=== PATIENT | female | born 1985 | race Caucasian/White ===

== ENCOUNTER 2018-07-29 12:35 | Outpatient (REF) | payer MEDICAID, SELFPAY | END 2018-07-29 12:55 | LOC: NCHCN 12:35 | PROVIDERS: PCP Nurse Practitioner Family; Visit Provider Nurse Practitioner Family | DX: N12 Tubulo-interstitial nephritis, not specified as acute or chronic (principal) | CPT/HCPCS: 87086 ==

== ENCOUNTER 2019-05-02 22:46 | Outpatient (REF) | payer MEDICAID, SELFPAY ==
[2019-05-02 22:06] LABS: Bilirubin Negative (Negative); Blood Negative (Negative); Clarity Turbid (Clear); Glucose Negative (Negative); Ketones Trace mg/dL (Negative); Leukocyte Esterase Negative (Negative); Nitrite Negative (Negative); Specific Gravity 1.025 (1.005-1.025); Urobilinogen 0.2 EU/dL (Up TO 0.2)
== END 2019-05-02 23:06 ==
LOC: NCHCN 22:46
PROVIDERS: PCP Nurse Practitioner Family; Visit Provider Family Medicine
DX: N12 Tubulo-interstitial nephritis, not specified as acute or chronic (principal)
CPT/HCPCS: 81003

== ENCOUNTER 2019-06-13 10:45 | Outpatient (REF) | payer MEDICAID, SELFPAY ==
[2019-06-13 22:31] LABS: Abs Immature Grans 0.02 k/cumm (0.0-0.09); Absolute Basophil Count 0.05 k/cumm (0.0-0.2); Absolute Eosinophil Count 0.08 k/cumm (0.0-0.7); Absolute Monocyte Count 0.57 k/cumm (0.11-0.7); Absolute Neutrophil Count 7.73 k/cumm (1.2-6.7); Basophils % 0.5; Eosinophils % 0.8; HCT 44.5 % (36.0-46.0); HGB 14.7 g/dL (12.0-15.5); Immature Grans % 0.2 %; Lymphocytes % 19.1; Mean Corpuscular Hemoglobin 32.6 pg (27.0-33.0); Mean Corpuscular Volume 98.7 fL (80-95); Mean Platelet Volume 11.6 fL (8.0-11.0); Monocytes % 5.5; Neutrophils % 73.9; Platelet Count 253 x1000/uL (130-400); RBC 4.51 m/cumm (4.00-5.20); RBC Distribution Width 13.5 % (11.7-14.6); White Blood Cell Count 10.45 k/cumm (4.4-10.8)
[2019-06-13 23:02] LABS: TSH 2.58 uIU/mL (0.36-3.74); Vitamin B12 285 pg/mL (193-986)
[2019-06-15 10:34] LABS: Syphilis Serology (RPR) Negative (Negative)
[2019-06-15 11:00] LABS: HIV-1/2 Ag & Ab Screen Negative (Negative)
[2019-06-15 11:51] LABS: Hep B Core Antibody Negative (Negative)
[2019-06-15 14:14] LABS: HCV RNA Detection Quantitative 0 IU/mL (Undetected)
== END 2019-06-13 11:05 ==
LOC: NCHCN 10:45
PROVIDERS: PCP Nurse Practitioner Family; Visit Provider Nurse Practitioner Family
DX: R63.4 Abnormal weight loss (principal); R61 Generalized hyperhidrosis; Z11.4 Encounter for screening for human immunodeficiency virus [HIV]; Z11.59 Encounter for screening for other viral diseases; N32.89 Other specified disorders of bladder; R30.0 Dysuria; N39.46 Mixed incontinence; M54.81 Occipital neuralgia
CPT/HCPCS: 86704; 87389; 82607; 84443; 85025; 86592; 87522

== ENCOUNTER 2019-11-01 15:30 | Outpatient (REF) | payer MEDICAID, SELFPAY ==
[2019-11-05 16:54] LABS: SARS-CoV-2 RNA Undetected (Undetected); SARS-CoV-2 Specimen Source Nasopharynx
== END 2019-11-01 15:50 ==
LOC: NCHCN 15:30
PROVIDERS: PCP Nurse Practitioner Family; Visit Provider Nurse Practitioner Family
DX: Z20.828 Contact with and (suspected) exposure to other viral communicable diseases (principal)
CPT/HCPCS: U0003

== ENCOUNTER 2020-10-24 18:24 | Outpatient (REF) | payer MEDICAID, SELFPAY ==
[2020-10-24 22:08] LABS: HCT 35.8 % (36.0-46.0); HGB 11.9 g/dL (11.2-15.7); MCH 33.8 pg (27.0-33.0); MCHC 33.2 % (32.0-36.0); MCV 101.7 fL (80-95); MPV 12.1 fL (8.0-11.0); Platelet Count 178 10^3/uL (130-400); RBC 3.52 10^6/uL (3.93-5.22); RDW 11.2 % (11.7-14.6); WBC 9.11 10^3/uL (4.4-10.8)
[2020-10-24 22:31] LABS: Ferritin 37 ng/mL (8-252); TSH (W/Ref FT4) 2.71 uIU/mL (0.36-3.74)
[2020-10-24 22:40] LABS: Hemoglobin A1C 5.1 % (<5.7)
== END 2020-10-24 18:25 | disposition home or self-care (01) ==
LOC: NCHCN 18:24
PROVIDERS: PCP Nurse Practitioner Family; Visit Provider Nurse Practitioner Community Health
DX: G62.9 Polyneuropathy, unspecified (principal); L65.9 Nonscarring hair loss, unspecified; E55.9 Vitamin D deficiency, unspecified; Z13.1 Encounter for screening for diabetes mellitus
CPT/HCPCS: 82306; 85027; 82728; 83036; 84443

== ENCOUNTER 2022-06-03 15:41 | Outpatient (REF) | payer MEDICAID, SELFPAY ==
--- NOTE | 2022-06-03 10:30 | PAPFT_PTH ---
PATIENT: Makayla Mccloud LOC: [facility] U#:[id number] AGE/SX: 36/F ROOM: RE06/03/[address]: Mouna Soto : 1985 BED: DIS: 06/03/2022 SPEC #: [id number] RECD: 06/03/22 18:11 STATUS: ARNAUD REWarren #: [id number] LEANNA: 06/03/22 10:[address]: Mouna Drake DEPT: [facility] Cytology RECD BY: Divya Pereira Tissues: 1 - CX/ENDOCX FOR PAP SMEARS Procedures: PAP THIN PREP/UVM Screening HPV DNA PROBE Comments: [id number]
--- OUTSIDE RECORDS SUMMARY | 2022-06-03 15:43 | XMS_ITS | CCD ---
:1985 Author Care Team Providers Name Role Phone PAM QUINTANILLA Attending Physician Unavailable Vital Signs Unknown or Not Available. Allergies Allergy Code Allergy Type Reaction Status PCN (penicillin) 0 Drug allergy Anaphylaxis Active Procedures Unknown or Not Available. History of Immunizations Immunization Code Date Influenza, seasonal, injectable, preservative free 140 03/18/2014 Problems Unknown or Not Available. Results [facility] - Collect Date/Danielle e: 09/28/2021 10:34 Test Name Code Test Result Test Units Test Ref Range Tier- 74090-8 PRE-OP N/A SARS COV2 RNA: 30978-9 NEGATIVE N/A REFERENCE RAN GE: NEGAT Active Medications Medication Code Dose Units Frequency Route Modification Start Date/Time Phenazopyridine 0301313 1 TABLET THREE TIMES ORAL 08/2021 200MG Oral Tablet A DAY 16:29 Prescription Detail TAKE 1 TABLET ORAL THREE DANIELLE ES A DAY Ondansetron 4MG Oral 228756 1 TABLET NEEDED EVERY ORAL 12/12/2021 16:28 Tablet, Disintegrating 6 HOURS Prescription Detail TAKE 1 TABLET ORAL NEEDED EVERY 6 HOURS FOR Nausea/Vomiting Cipro 500MG Oral Tablet 096822 1 TABLET TWICE A DAY ORAL 12/12/2021 16:27 Prescription Detail TAKE 1 TABLET ORAL TWICE A D AY Metoclopramide 5MG Oral 331774 1 TABLET NEEDED EVERY ORAL 06/26/2021 13:12 Tablet 8 HOURS Prescription Detail TAKE 1 TABLET ORAL NEEDED EVERY 8 HOURS FOR Nausea/Vomiting SUBOXONE 8MG-2MG SUBLINGUAL FILM 0 8 MILLIGRAMS DAILY ORAL 07/22/2018 10:47 Prescription Detail TAKE 8 MILLIGRAMS ORAL DAILY Medications Administered During Visit Unknown or Not Available. Encounters Encounter Diagnosis Diagnosis Code Start Date Pre-surgery testing [id number] 09/28/2021 Social History Smoking Status Code Start Date End Date Former smoker [id number] Patient Decision Aids Unknown or Not Available. Discharge Instructions You were admitted to [facility] on 09/28/2021 22:16 with a principal diagnosis of Encounter for preprocedural laborator y examination You had the following tests done: COPLE Y COVID RHEONIX* You were discharged from [facility] on 09/28/2021 22:16 Should you have any questions prior to d ischarge, please contact a member of your healthcare team. If you have left the ho spital and have any questions, please contact your primary care physician. Chief Complaint and Reason For Visit Unknown or Not Available. Function Status Unknown or Not Available. Plan of Care Unknown or Not Available. Referral/Transition of Care Unknown or Not Available.
--- OUTSIDE RECORDS SUMMARY | 2022-06-03 15:43 | XMS_ITS | CCD ---
:1985 Author Care Team Providers Name Role Phone SILAS NUNO Attending Physician Unavailable RACHEL PAINTER Er Physician 1 Unavailable JACQUELIN Rodriguez Registered Nurse Unavailable MAHAD Dee Registered Nurse Unavailable Vital Signs Vital Sign Value Unit Date/Time Recent/Initial? BMI (Body Mass Index) 18.32 kg/m^2 09/07/2021 19:55 In itial VS Weight Measured 117 lbs 09/07/2021 19:55 Initial VS Height 67 in 09/07/2021 19:55 Initial VS BSA (Body Surface Area) 1.58 m^2 09/07/2021 19:55 Initial VS BP Systolic 147 mmHg 09/07/2021 19:55 Initial VS BP Diastolic 110 mmHg 09/07/2021 19:55 Initial VS Respiratory Rate 20 bpm 09/07/2021 19:55 Initial VS Heart Rate 137 bpm 09/07/2021 19:55 Initial VS O2 % BldC Oximetry 98 % 09/07/2021 19:55 Initi al VS Body Temperature 36.8 degrees 09/07/2021 19:55 Initial VS BP Systolic 121 mmHg 09/07/2021 22:29 Most Recent VS BP Diastolic 90 mmHg 09/07/2021 22:29 Most Recent VS Respiratory Rate 18 bpm 09/07/2021 22:29 Most Re cent VS Heart Rate 100 bpm 09/07/2021 22:29 Most Recent VS O2 % BldC Oximetry 99 % 09/07/2021 22:29 Most Recent VS Allergies Allergy Code Allergy Type Reaction Status PCN (penicillin) 0 Drug allergy Anaphylaxis Active Procedures Unknown or Not Available. History of Immunizations Immunization Code Date Influenza, seasonal, injectable, preservative free 140 03/18/2014 Problems Problem Code Start Date Resolved Date Status Auto-immune disorder [id number] 09/07/2021 Resolve d Results COMPREHENSIVE METABOLIC PANEL (CMP) - Co llect Date/Time: 09/07/2021 19:40 Test Name Code Test Result Test Units Test Ref Range GLUCOSE 2345-7 100 mg/dL L=70 H=116 BUN 3094-0 5 mg/dL L=6 H=25 CREATININE 2160-0 0.84 mg/dL L=0.51 H=0.95 SODIUM SERUM 2951-2 137 mmol/L L=136 H=145 POTASSIUM SERUM 2823-3 3.0 mmol/L L=3.4 H=5.2 CHLORIDE SERUM 2075-0 100 mmol/L L=96 H=110 CARBON DIOXIDE (CO2) 2028-9 29 mmol/L L=22 H= 34 ANION GAP 51087-6 8.5 mmol/L CALCIUM SERUM 16887-0 8.6 mg/dL L=8.2 H=10.2 BILIRUBIN TOTAL 1975-2 0.4 mg/dL L=0.0 H=1.3 ALK. PHOS. 6768-6 112 U/L L=46 H=116 SGOT (AST) 1920-8 19 U/L L=15 H=37 SGPT (ALT) 1742-6 23 U/L L=12 H=78 TOTAL PROTEIN 2885-2 7.5 gm/dL L=6.0 H=8.0 ALBUMIN 1751-7 3.8 gm/dL L=3.4 H=5.0 AGE 36 years eGFR (non-Afr.Amer.) 95681-5 76 mL/min eGFR (Afr-Bhutanese) 66125-6 92 mL/min LIPASE* - Collect Date/Time: 09/07/2021 19:40 Test Name Code Test Result Test Units Test Ref Range LIPASE 134 U/L L=73 H=393 CBC W/ DIFFERENTIAL* - Collect Date/Time : 09/07/2021 19:40 Test Name Code Test Result Test Units Test Ref Range WBC 6690-2 11.88 th/cmm L=5.00 H=10.00 NEUT % 65.1 % L=40.0 H=80.0 LYMPH % 27.9 % L=10.0 H=50.0 MONO % 39411-0 5.8 % L=2.0 H=12.0 EOS % 0.6 % L=0.0 H=8.0 BASO % 0.4 % L=0.0 H=3.0 IG % 2514-8 0.2 % L=0.0 H=1.1 NRBC % 71014-0 0.0 % L=0.0 H=0.0 NEUT abs count 751-8 7.7 th/cmm L=1.6 H=8.4 LYMPH abs count 731-0 3.3 th/cmm L=1.5 H=4.0 MONO abs count 742-7 0.7 th/cmm L=0.2 H=1.0 EOS abs count 711-2 0.1 th/cmm L=0.0 H=0.5 BASO abs count 704-7 0.1 th/cmm L=0.0 H=0.2 IG abs count 52394-7 0.0 th/cmm L=0.0 H=0.1 NRBC abs count 88815-5 0.0 mil/cmm L=0.0 H=0.0 RBC 789-8 3.94 mil/cmm L=3.90 H=5.40 HEMOGLOBIN 718-7 14.0 gm/dL L=12.0 H=16.0 HEMATOCRIT 4544-3 41 % L=37 H=47 MCV 787-2 104 fL L=82 H=92 MCH 785-6 35.5 pg L=27.0 H=31.0 MCHC 786-4 34.2 % L=32.0 H=36.0 RDW-SD 788-0 55.3 fL L=39.0 H=49.0 PLATELET COUNT 777-3 334 th/cmm L=150 H=450 CULT URINE CULTURE* - Collect Date/Time: 09/07/2021 19:40 Test Name Code Test Result Test Units Test Ref Range COLLECTION MODE: 74690-4 CLEAN CATCH N/A URINALYSIS WITH REFLEX CULT IF POSITIVE* - Collect Date/Time: 09/07/2021 19:40 Test Name Code Test Result Test Units Test Ref Range COLLECTION MODE: 37459-5 CLEAN CATCH N/A Color 5778-6 YELLOW N/A yellow Appearance 5767-9 CLEAR N/A clear Glucose urine 72444-7 NEGATIVE N/A negative mg/dl Bilirubin 5770-3 NEGATIVE N/A negative Ketones 2514-8 NEGATIVE N/A negative mg/dl Spec gravity 5811-5 <=1.005 N/A 1.003 - 1.030 pH urine 2756-5 6.0 N/A 5.0 - 7.0 Protein 39158-0 NEGATIVE N/A negative mg/dl Urobilinogen 74424-5 0.2 N/A <or= 1 EU/dl Nitrite. 5802-4 NEGATIVE N/A negative Blood 5794-3 SMALL N/A negative Leukocytes. MODERATE N/A negative MICROSCOPIC INDICATED N/A WBCs. 87984-3 >100 N/A 0-5 / hpf RBCs 10285-1 0-5 N/A 0-5 / hpf Epith cells 94477-2 0-5 N/A 0-5 / hpf Cell types squamous N/A Crystals none N/A none Bacteria moderate N/A none Mucus 8247-9 none N/A none Casts 86000-3 none N/A none /lpf TEST (URINE) QUALITATIVE - Col lect Date/Time: 09/07/2021 19:40 Test Name Code Test Result Test Units Test Ref Range TEST 2106-3 NEGATIVE N/A Active Medications Medications Administered During Visit Medication Dose Units Frequency Route Date/Time of L ast Dose SODIUM CHLORIDE 0.9% 1000ML 1000 ML X1 09/07/2021 20:21 DiphenhydrAMINE INJ SDV: 25 MG X1 IVP 09/07/2021 20:27 50MG/ML METOCLOPRAMIDE INJ SDV: 10 MG X1 IVP 0 09/07/2021 20:28 10MG/2ML POTASSIUM CHL TABLET: 20mEq 40 MEQ X1 PO 09/07/2021 21:29 NITROFURANTOIN MONOHYD/MACRO 200 MG X1 PO 09/07/2021 22:18 CAPS: 100MG Encounters Encounter Diagnosis Diagnosis Code Start Date Urinary tract infection, site not specified N390 09/07/2021 Social History Smoking Status Code Start Date End Date Former smoker [id number] Patient Decision Aids Unknown or Not Available. Discharge Instructions You were admitted to [facility] on 09/07/2021 19:30 with a principal diagnosis of Urinary tract infection, site not spe cified You had the following tests done: CBC W / DIFFERENTIAL* COMPREHENSIVE METABOLIC PANEL (CMP) CULT URINE CULTURE* LIPASE* PREGNA NCY TEST (URINE) QUALITATIVE URINALYSIS WITH REFLEX CULT IF POSITIVE* You were discharged from [facility] on 09/07/2021 22:38 Should you have any questions prior to d ischarge, please contact a member of your healthcare team. If you have left the ho spital and have any questions, please contact your primary care physician. Chief Complaint and Reason For Visit Chief Complaint Date of Onset POSSIBLE KIDNEY ISSUE Function Status Unknown or Not Available. Plan of Care Unknown or Not Available. Referral/Transition of Care Unknown or Not Available.
--- OUTSIDE RECORDS SUMMARY | 2022-06-03 15:43 | XMS_ITS | CCD ---
:1985 Author Care Team Providers Name Role Phone DARIEN TOURE Attending Physician Unavailable DARIEN TOURE Er Physician 1 Unavailable AGUEDA Caraballo Registered Nurse Unavailable Vital Signs Vital Sign Value Unit Date/Time Recent/Initial? BMI (Body Mass Index) 17.49 kg/m^2 06/26/2021 10:02 In itial VS Weight Measured 115 lbs 06/26/2021 10:02 Initial VS Height 68 in 06/26/2021 10:02 Initial VS BSA (Body Surface Area) 1.58 m^2 06/26/2021 10:02 Initial VS BP Systolic 148 mmHg 06/26/2021 10:02 Initial VS BP Diastolic 92 mmHg 06/26/2021 10:02 Initial VS Respiratory Rate 19 bpm 06/26/2021 10:02 Initial VS Heart Rate 114 bpm 06/26/2021 10:02 Initial VS O2 % BldC Oximetry 99 % 06/26/2021 10:02 Initi al VS Body Temperature 37.7 degrees 06/26/2021 10:02 Initial VS BP Systolic 129 mmHg 06/26/2021 12:00 Most Recent VS BP Diastolic 77 mmHg 06/26/2021 12:00 Most Recent VS O2 % BldC Oximetry 96 % 06/26/2021 12:00 Most Recent VS Respiratory Rate 20 bpm 06/26/2021 13:30 Most Re cent VS Heart Rate 98 bpm 06/26/2021 13:30 Most Recent VS Body Temperature 36.7 degrees 06/26/2021 13:30 Most Re cent VS Allergies Allergy Code Allergy Type Reaction Status PCN (penicillin) 0 Drug allergy Anaphylaxis Active Procedures Unknown or Not Available. History of Immunizations Immunization Code Date Influenza, seasonal, injectable, preservative free 140 03/18/2014 Problems Problem Code Start Date Resolved Date Status Auto-immune disorder [id number] 09/07/2021 Resolve d Results COMPREHENSIVE METABOLIC PANEL (CMP) - Co llect Date/Time: 06/26/2021 10:09 Test Name Code Test Result Test Units Test Ref Range GLUCOSE 2345-7 111 mg/dL L=70 H=116 BUN 3094-0 6 mg/dL L=6 H=25 CREATININE 2160-0 0.89 mg/dL L=0.51 H=0.95 SODIUM SERUM 2951-2 139 mmol/L L=136 H=145 POTASSIUM SERUM 2823-3 3.7 mmol/L L=3.4 H=5.2 CHLORIDE SERUM 2075-0 101 mmol/L L=96 H=110 CARBON DIOXIDE (CO2) 2028-9 28 mmol/L L=22 H= 34 ANION GAP 92632-5 10.3 mmol/L CALCIUM SERUM 01958-1 8.7 mg/dL L=8.2 H=10.2 BILIRUBIN TOTAL 1975-2 0.5 mg/dL L=0.0 H=1.3 ALK. PHOS. 6768-6 82 U/L L=46 H=116 SGOT (AST) 1920-8 32 U/L L=15 H=37 SGPT (ALT) 1742-6 32 U/L L=12 H=78 TOTAL PROTEIN 2885-2 7.6 gm/dL L=6.0 H=8.0 ALBUMIN 1751-7 4.2 gm/dL L=3.4 H=5.0 AGE 35 years eGFR (non-Afr.Amer.) 60696-9 71 mL/min eGFR (Afr-Mozambican) 21638-9 86 mL/min LIPASE* - Collect Date/Time: 06/26/2021 10:09 Test Name Code Test Result Test Units Test Ref Range LIPASE 102 U/L L=73 H=393 TROPONIN HIGH SENSITIVITY* - Collect Chito e/Time: 06/26/2021 10:09 Test Name Code Test Result Test Units Test Ref Range TROPONIN HS 6.7 pg/mL L=0.0 H=60.4 Specimen seq. Random N/A CBC W/ DIFFERENTIAL* - Collect Date/Time : 06/26/2021 10:09 Test Name Code Test Result Test Units Test Ref Range WBC 6690-2 6.16 th/cmm L=5.00 H=10.00 NEUT % 64.6 % L=40.0 H=80.0 LYMPH % 26.8 % L=10.0 H=50.0 MONO % 44564-6 6.2 % L=2.0 H=12.0 EOS % 1.1 % L=0.0 H=8.0 BASO % 1.0 % L=0.0 H=3.0 IG % 2514-8 0.3 % L=0.0 H=1.1 NRBC % 76096-1 0.0 % L=0.0 H=0.0 NEUT abs count 751-8 4.0 th/cmm L=1.6 H=8.4 LYMPH abs count 731-0 1.7 th/cmm L=1.5 H=4.0 MONO abs count 742-7 0.4 th/cmm L=0.2 H=1.0 EOS abs count 711-2 0.1 th/cmm L=0.0 H=0.5 BASO abs count 704-7 0.1 th/cmm L=0.0 H=0.2 IG abs count 74801-2 0.0 th/cmm L=0.0 H=0.1 NRBC abs count 20832-3 0.0 mil/cmm L=0.0 H=0.0 RBC 789-8 4.13 mil/cmm L=3.90 H=5.40 HEMOGLOBIN 718-7 14.3 gm/dL L=12.0 H=16.0 HEMATOCRIT 4544-3 42 % L=37 H=47 MCV 787-2 102 fL L=82 H=92 MCH 785-6 34.6 pg L=27.0 H=31.0 MCHC 786-4 34.0 % L=32.0 H=36.0 RDW-SD 788-0 46.3 fL L=39.0 H=49.0 PLATELET COUNT 777-3 202 th/cmm L=150 H=450 WAYNE COVID FLU RSV GENEXPERT - Collect Date/Time: 06/26/2021 11:10 Test Name Code Test Result Test Units Test Ref Range COVID 10260-2 NEGATIVE N/A Normal: Negativ e INFLUENZA A DNA 18154-4 NEGATIVE N/A Normal: Nega tive INFLUENZA B DNA 11503-6 NEGATIVE N/A Normal: Nega tive RSV DNA 64333-7 NEGATIVE N/A Normal: Negativ e URINALYSIS WITH REFLEX CULT IF POSITIVE* - Collect Date/Time: 06/26/2021 10:50 Test Name Code Test Result Test Units Test Ref Range COLLECTION MODE: CLEAN CATCH N/A Color 5778-6 STRAW N/A yellow Appearance 5767-9 CLEAR N/A clear Glucose urine 63609-0 NEGATIVE N/A negative mg/dl Bilirubin 5770-3 NEGATIVE N/A negative Ketones 2514-8 NEGATIVE N/A negative mg/dl Spec gravity 5811-5 <=1.005 N/A 1.003 - 1.030 pH urine 2756-5 6.5 N/A 5.0 - 7.0 Protein 58801-7 NEGATIVE N/A negative mg/dl Urobilinogen 10691-7 0.2 N/A <or= 1 EU/dl Nitrite. 5802-4 NEGATIVE N/A negative Blood 5794-3 NEGATIVE N/A negative Leukocytes. NEGATIVE N/A negative MICROSCOPIC NOT INDICAT N/A TEST (URINE) QUALITATIVE - Col lect Date/Time: 06/26/2021 10:50 Test Name Code Test Result Test Units Test Ref Range TEST 2106-3 NEGATIVE N/A Active Medications Medications Administered During Visit Medication Dose Units Frequency Route Date/Time of L ast Dose METOCLOPRAMIDE INJ SDV: 5 MG X1 IVP 0 06/26/2021 13:01 10MG/2ML Encounters Encounter Diagnosis Diagnosis Code Start Date Chest pain, unspecified R079 06/26/2021 Social History Smoking Status Code Start Date End Date Former smoker [id number] Patient Decision Aids Unknown or Not Available. Discharge Instructions You were admitted to [facility] on 06/26/2021 09:43 with a principal diagnosis of Chest pain, unspecified You had the following tests done: COPLE Y COVID FLU RSV GENEXPERT TEST (URINE) QUALITATIVE URINALYSIS WITH REFL EX CULT IF POSITIVE* CBC W/ DIFFERENTIAL* COMPREHENSIVE METABOLIC PANEL (CMP) LIPA SE* TROPONIN HIGH SENSITIVITY* You were discharged from [facility] on 06/26/2021 14:02 Should you have any questions prior to d ischarge, please contact a member of your healthcare team. If you have left the ho spital and have any questions, please contact your primary care physician. Chief Complaint and Reason For Visit Chief Complaint Date of Onset FEVER CHEST PAIN VOMITING Function Status Unknown or Not Available. Plan of Care Unknown or Not Available. Referral/Transition of Care Unknown or Not Available.
--- OUTSIDE RECORDS SUMMARY | 2022-06-03 15:44 | XMS_ITS | CCD ---
:1985 Author Care Team Providers Name Role Phone VIC MCNEIL Attending Physician Unavailable Vital Signs Unknown or Not Available. Allergies Allergy Code Allergy Type Reaction Status PCN (penicillin) 0 Drug allergy Anaphylaxis Active Procedures Unknown or Not Available. History of Immunizations Immunization Code Date Influenza, seasonal, injectable, preservative free 140 03/18/2014 Problems Unknown or Not Available. [facility] - Collect Date/Danielle e: 11/09/2021 10:38 Test Name Code Test Result Test Units Test Ref Range Tier- 48851-8 PRE-OP N/A SARS COV2 RNA: 85699-0 NEGATIVE N/A REFERENCE RAN GE: NEGAT Active Medications Medication Code Dose Units Frequency Route Modification Start Date/Time Phenazopyridine 3459141 1 TABLET THREE TIMES ORAL 08/2021 200MG Oral Tablet A DAY 16:29 Prescription Detail TAKE 1 TABLET ORAL THREE DANIELLE ES A DAY Ondansetron 4MG Oral 592011 1 TABLET NEEDED EVERY ORAL 12/12/2021 16:28 Tablet, Disintegrating 6 HOURS Prescription Detail TAKE 1 TABLET ORAL NEEDED EVERY 6 HOURS FOR Nausea/Vomiting Cipro 500MG Oral Tablet 426911 1 TABLET TWICE A DAY ORAL 12/12/2021 16:27 Prescription Detail TAKE 1 TABLET ORAL TWICE A D AY Metoclopramide 5MG Oral 141998 1 TABLET NEEDED EVERY ORAL 06/26/2021 13:12 Tablet 8 HOURS Prescription Detail TAKE 1 TABLET ORAL NEEDED EVERY 8 HOURS FOR Nausea/Vomiting SUBOXONE 8MG-2MG SUBLINGUAL FILM 0 8 MILLIGRAMS DAILY ORAL 07/22/2018 10:47 Prescription Detail TAKE 8 MILLIGRAMS ORAL DAILY Medications Administered During Visit Unknown or Not Available. Encounters Encounter Diagnosis Diagnosis Code Start Date Pre-surgery testing [id number] 11/09/2021 Social History Smoking Status Code Start Date End Date Former smoker [id number] Patient Decision Aids Unknown or Not Available. Discharge Instructions You were admitted to [facility] on 11/09/2021 19:02 with a principal diagnosis of Encounter for preprocedural laborator y examination You had the following tests done: COPLE Y COVID RHEONIX* You were discharged from [facility] on 11/09/2021 19:02 Should you have any questions prior to [...]
--- OUTSIDE RECORDS SUMMARY | 2022-06-03 15:44 | XMS_ITS | CCD ---
:1985 Author Care Team Providers Name Role Phone DARIEN TOURE Attending Physician Unavailable DARIEN TOURE Er Physician 1 GIOVANA Perry Registered Nurse Unavailable GIOVANA Rodriguez Registered Nurse Unavailable NAZANIN Stallings Registered Nurse Unavailable Vital Signs Vital Sign Value Unit Date/Time Recent/Initial? BMI (Body Mass Index) 18.25 kg/m^2 12/12/2021 11:56 In itial VS Weight Measured 120 lbs 12/12/2021 11:56 Initial VS Height 68 in 12/12/2021 11:56 Initial VS BSA (Body Surface Area) 1.62 m^2 12/12/2021 11:56 Initial VS BP Systolic 116 mmHg 12/12/2021 11:56 Initial VS BP Diastolic 92 mmHg 12/12/2021 11:56 Initial VS Respiratory Rate 20 bpm 12/12/2021 11:56 Initial VS Heart Rate 87 bpm 12/12/2021 11:56 Initial VS O2 % BldC Oximetry 100 % 12/12/2021 11:56 Initi al VS Body Temperature 36.9 degrees 12/12/2021 11:56 Initial VS BP Systolic 120 mmHg 12/12/2021 15:30 Most Recent VS BP Diastolic 79 mmHg 12/12/2021 15:30 Most Recent VS Respiratory Rate 16 bpm 12/12/2021 15:30 Most Re cent VS Heart Rate 76 bpm 12/12/2021 15:30 Most Recent VS O2 % BldC Oximetry 97 % 12/12/2021 15:30 Most Recent VS Body Temperature 35.8 degrees 12/12/2021 15:30 Most Re cent VS Allergies Allergy Code Allergy Type Reaction Status PCN (penicillin) 0 Drug allergy Anaphylaxis Active Procedures Unknown or Not Available. History of Immunizations Immunization Code Date Influenza, seasonal, injectable, preservative free 140 03/18/2014 Problems Unknown or Not Available. Results BASIC METABOLIC PANEL (BMP) - Collect Da te/Time: 12/12/2021 15:00 Test Name Code Test Result Test Units Test Ref Range GLUCOSE 2345-7 86 mg/dL L=70 H=116 BUN 3094-0 3 mg/dL L=6 H=25 CREATININE 2160-0 0.71 mg/dL L=0.51 H=0.95 SODIUM SERUM 2951-2 139 mmol/L L=136 H=145 POTASSIUM SERUM 2823-3 3.4 mmol/L L=3.4 H=5.2 CHLORIDE SERUM 2075-0 100 mmol/L L=96 H=110 CARBON DIOXIDE (CO2) 2028-9 30 mmol/L L=22 H= 34 ANION GAP 29772-7 8.6 mmol/L CALCIUM SERUM 97867-7 8.7 mg/dL L=8.2 H=10.2 AGE 36 years eGFR (non-Afr.Amer.) 50060-4 92 mL/min eGFR (Afr-British) 56451-8 111 mL/min CBC W/ DIFFERENTIAL* - Collect Date/Time : 12/12/2021 15:00 Test Name Code Test Result Test Units Test Ref Range WBC 6690-2 8.90 th/cmm L=5.00 H=10.00 NEUT % 74.6 % L=40.0 H=80.0 LYMPH % 19.6 % L=10.0 H=50.0 MONO % 07793-1 4.8 % L=2.0 H=12.0 EOS % 0.4 % L=0.0 H=8.0 BASO % 0.4 % L=0.0 H=3.0 IG % 2514-8 0.2 % L=0.0 H=1.1 NRBC % 65178-2 0.0 % L=0.0 H=0.0 NEUT abs count 751-8 6.6 th/cmm L=1.6 H=8.4 LYMPH abs count 731-0 1.7 th/cmm L=1.5 H=4.0 MONO abs count 742-7 0.4 th/cmm L=0.2 H=1.0 EOS abs count 711-2 0.0 th/cmm L=0.0 H=0.5 BASO abs count 704-7 0.0 th/cmm L=0.0 H=0.2 IG abs count 31229-2 0.0 th/cmm L=0.0 H=0.1 NRBC abs count 36020-8 0.0 mil/cmm L=0.0 H=0.0 RBC 789-8 4.10 mil/cmm L=3.90 H=5.40 HEMOGLOBIN 718-7 14.2 gm/dL L=12.0 H=16.0 HEMATOCRIT 4544-3 42 % L=37 H=47 MCV 787-2 102 fL L=82 H=92 MCH 785-6 34.6 pg L=27.0 H=31.0 MCHC 786-4 34.0 % L=32.0 H=36.0 RDW-SD 788-0 48.9 fL L=39.0 H=49.0 PLATELET COUNT 777-3 210 th/cmm L=150 H=450 URINALYSIS ROUTINE* - Collect Date/Time: 12/12/2021 12:15 Test Name Code Test Result Test Units Test Ref Range COLLECTION MODE: 61299-8 CLEAN CATCH N/A Color 5778-6 STRAW N/A yellow Appearance 5767-9 HAZY N/A clear Glucose urine 68155-2 NEGATIVE N/A negative mg/dl Bilirubin 5770-3 NEGATIVE N/A negative Ketones 2514-8 NEGATIVE N/A negative mg/dl Spec gravity 5811-5 <=1.005 N/A 1.003 - 1.030 pH urine 2756-5 6.0 N/A 5.0 - 7.0 Protein 23642-7 NEGATIVE N/A negative mg/dl Urobilinogen 18841-8 0.2 N/A <or= 1 EU/dl Nitrite 5802-4 NEGATIVE N/A negative Blood 5794-3 LARGE N/A negative Leukocytes 53697-7 LARGE N/A negative MICROSCOPIC* INDICATED N/A WBCs 40513-2 25-100 N/A 0-5 / hpf RBCs 48791-9 5-10 N/A 0-5 / hpf Epith cells 94715-4 5-10 N/A 0-5 / hpf Cell types squamous N/A Crystals none N/A none Bacteria minimal N/A none Mucus 8247-9 present N/A none Casts 54808-9 none N/A none /lpf TEST (URINE) QUALITATIVE - Col lect Date/Time: 12/12/2021 12:15 Test Name Code Test Result Test Units Test Ref Range TEST 2106-3 NEGATIVE N/A Active Medications Medications Administered During Visit Medication Dose Units Frequency Route Date/Time of L ast Dose KETOROLAC INJ SDV: 30MG/1ML 15 MG X1 IVP 12/12/2021 14:59 PHENAZOPYRIDINE TABLET: 100MG 200 MG X1 PO 12/12/2021 14:59 ONDANSETRON INJ SDV: 4MG/2ML 4 MG X1 IVP 12/12/2021 14:59 CIPROFLOXACIN TABLET: 500MG 500 MG X1 PO 12/12/2021 15:50 Encounters Encounter Diagnosis Diagnosis Code Start Date Tubulo-interstitial nephritis, 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 Discharge Instructions You were admitted to [facility] on 12/12/2021 11:33 with a principal diagnosis of Tubulo-interstitial nephritis, not sp ecified as acute or chronic You had the following tests done: BASIC METABOLIC PANEL (BMP) CBC W/ DIFFERENTIAL* TEST (URINE) QUALITATIVE URINA LYSIS ROUTINE* You were discharged from [facility] on 12/12/2021 16:20 Should you have any questions prior to d ischarge, please contact a member of your healthcare team. If you have left the ho spital and have any questions, please contact your primary care physician. Chief Complaint and Reason For Visit Chief Complaint Date of Onset UTI Function Status Unknown or Not Available. Plan of Care Unknown or Not Available. Referral/Transition of Care Unknown or Not Available.
--- OUTSIDE RECORDS SUMMARY | 2022-06-03 15:44 | XMS_ITS | CCD ---
:1985 Author Care Team Providers Name Role Phone DARIEN DAVIS Attending Physician Unavailable DARIEN DAVIS Rounding (Secondary) Physician Unavailab le Vital Signs Unknown or Not Available. Allergies Allergy Code Allergy Type Reaction Status PCN (penicillin) 0 Drug allergy Anaphylaxis Active Procedures Unknown or Not Available. History of Immunizations Immunization Code Date Influenza, seasonal, injectable, preservative free 140 03/18/2014 Problems Unknown or Not Available. Results Unknown or Not Available. Active Medications Medication Code Dose Units Frequency Route Modification Start Date/Time Phenazopyridine 1070542 1 TABLET THREE TIMES ORAL 08/2021 200MG Oral Tablet A DAY 16:29 Prescription Detail TAKE 1 TABLET ORAL THREE DANIELLE ES A DAY Ondansetron 4MG Oral [id number] 1 TABLET NEEDED EVERY ORAL 12/12/2021 16:28 Tablet, Disintegrating 6 HOURS Prescription Detail TAKE 1 TABLET ORAL NEEDED EVERY 6 HOURS FOR Nausea/Vomiting Cipro 500MG Oral Tablet [id number] 1 TABLET TWICE A DAY ORAL 12/12/2021 16:27 Prescription Detail TAKE 1 TABLET ORAL TWICE A D AY Metoclopramide 5MG Oral 550000 1 TABLET NEEDED EVERY ORAL 06/26/2021 13:12 Tablet 8 HOURS Prescription Detail TAKE 1 TABLET ORAL NEEDED EVERY 8 HOURS FOR Nausea/Vomiting SUBOXONE 8MG-2MG SUBLINGUAL FILM 0 8 MILLIGRAMS DAILY ORAL 07/22/2018 10:47 Prescription Detail TAKE 8 MILLIGRAMS ORAL DAILY Medications Administered During Visit Unknown or Not Available. Encounters Encounter Diagnosis Diagnosis Code Start Date Bradycardia, unspecified R001 11/27/2021 Social History Smoking Status Code Start Date End Date Former smoker [id number] Patient Decision Aids Unknown or Not Available. Discharge Instructions You were admitted to [facility] on 11/27/2021 08:40 with a principal diagnosis of Bradycardia, unspecified You were discharged from [facility] on 11/27/2021 00:00 Should you have any questions prior to [...]
--- OUTSIDE RECORDS SUMMARY | 2022-06-03 15:44 | XMS_ITS | CCD ---
:1985 Author Care Team Providers Name Role Phone LAURI CASTANEDA MD Attending Physician Unavailable Vital Signs Unknown or Not Available. Allergies Allergy Code Allergy Type Reaction Status PCN (penicillin) 0 Drug allergy Anaphylaxis Active Procedures Unknown or Not Available. 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 09/07/2021 Resolve d Results WAYNE COVID RHEONIX - Collect Date/Time : 02/05/2021 11:00 Test Name Code Test Result Test Units Test Ref Range SOURCE= Anterior nasal N/A Tier- SYMPTOMS N/A SARS COV2 RNA: 54279-1 NEGATIVE N/A REFERENCE RAN GE: NEGAT Active Medications Medication Code Dose Units Frequency Route Modification Start Date/Time Phenazopyridine 1437089 1 TABLET THREE TIMES ORAL 08/2021 200MG Oral Tablet A DAY 16:29 Prescription Detail TAKE 1 TABLET ORAL THREE DANIELLE ES A DAY Ondansetron 4MG Oral [id number] 1 TABLET NEEDED EVERY ORAL 12/12/2021 16:28 Tablet, Disintegrating 6 HOURS Prescription Detail TAKE 1 TABLET ORAL NEEDED EVERY 6 HOURS FOR Nausea/Vomiting Cipro 500MG Oral Tablet [id number] 1 TABLET TWICE A DAY ORAL 12/12/2021 16:27 Prescription Detail TAKE 1 TABLET ORAL TWICE A D AY Metoclopramide 5MG Oral [id number] 1 TABLET NEEDED EVERY ORAL 06/26/2021 13:12 Tablet 8 HOURS Prescription Detail TAKE 1 TABLET ORAL NEEDED EVERY 8 HOURS FOR Nausea/Vomiting SUBOXONE 8MG-2MG SUBLINGUAL FILM 0 8 MILLIGRAMS DAILY ORAL 07/22/2018 10:47 Prescription Detail TAKE 8 MILLIGRAMS ORAL DAILY Medications Administered During Visit Unknown or Not Available. Encounters Encounter Diagnosis Diagnosis Code Start Date CONTACT WITH AND SUSPECTED EXPOSURE TO COVID-19 [id number] 02/05/2021 Social History Smoking Status Code Start Date End Date Former smoker [id number] Patient Decision Aids Unknown or Not Available. Discharge Instructions You were admitted to [facility] on 02/05/2021 08:58 with a principal diagnosis of Contact with and (suspected ) exposure to COVID-19 You had the following tests done: COPLE Y COVID RHEONIX You were discharged from [facility] on 02/05/2021 08:58 Should you have any questions prior to [...]
--- OUTSIDE RECORDS SUMMARY | 2022-06-03 15:44 | XMS_ITS | CCD ---
:1985 Author Care Team Providers Name Role Phone CONSUELO LECHUGA MD Attending Physician Unavailable CONSUELO LECHUGA MD Er Physician 1 Unavailable Vital Signs Unknown or Not Available. Allergies Allergy Code Allergy Type Reaction Status PCN (penicillin) 0 Drug allergy Anaphylaxis Active Procedures Unknown or Not Available. History of Immunizations Immunization Code Date Influenza, seasonal, injectable, preservative free 140 03/18/2014 Problems Problem Code Start Date Resolved Date Status Auto-immune disorder 70797396 09/07/2021 Resolve d Results Unknown or Not Available. Active Medications Medication Code Dose Units Frequency Route Modification Start Date/Time Phenazopyridine [id number] 1 TABLET THREE TIMES ORAL 08/2021 200MG Oral Tablet A DAY 16:29 Prescription Detail TAKE 1 TABLET ORAL THREE DANIELLE ES A DAY Ondansetron 4MG Oral [id number] 1 TABLET NEEDED EVERY ORAL 12/12/2021 16:28 Tablet, Disintegrating 6 HOURS Prescription Detail TAKE 1 TABLET ORAL NEEDED EVERY 6 HOURS FOR Nausea/Vomiting Cipro 500MG Oral Tablet 793190 1 TABLET TWICE A DAY ORAL 12/12/2021 16:27 Prescription Detail TAKE 1 TABLET ORAL TWICE A D AY Metoclopramide 5MG Oral [id number] 1 TABLET NEEDED EVERY ORAL 06/26/2021 13:12 Tablet 8 HOURS Prescription Detail TAKE 1 TABLET ORAL NEEDED EVERY 8 HOURS FOR Nausea/Vomiting SUBOXONE 8MG-2MG SUBLINGUAL FILM 0 8 MILLIGRAMS DAILY ORAL 07/22/2018 10:47 Prescription Detail TAKE 8 MILLIGRAMS ORAL DAILY Medications Administered During Visit Unknown or Not Available. Encounters Encounter Diagnosis Diagnosis Code Start Date Periapical abscess without sinus [id number] Social History Smoking Status Code Start Date End Date Former smoker [id number] Patient Decision Aids Unknown or Not Available. Discharge Instructions You were admitted to [facility] on 12/31/2020 17:21 with a principal diagnosis of Periapical abscess without sinus You were discharged from [facility] on 12/31/2020 18:06 Should you have any questions prior to d ischarge, please contact a member of your healthcare team. If you have left the ho spital and have any questions, please contact your primary care physician. Chief Complaint and Reason For Visit Chief Complaint Date of Onset FACIAL SWELLING Function Status Unknown or Not Available. Plan of Care Unknown or Not Available. Referral/Transition of Care Unknown or Not Available.
== END 2022-06-03 15:42 | disposition home or self-care (01) ==
LOC: NCHCN 15:41
PROVIDERS: PCP Nurse Practitioner Family; Visit Provider Nurse Practitioner Family
DX: Z12.4 Encounter for screening for malignant neoplasm of cervix (principal)
CPT/HCPCS: 88142; 87624

== ENCOUNTER 2022-09-11 13:03 | Outpatient (REF) | payer MEDICAID, SELFPAY ==
[2022-09-11 15:26] LABS: Abs Immature Grans 0.02 10^3/uL (0.0-0.06); Absolute Basophil Count 0.04 10^3/uL (0.0-0.2); Absolute Eosinophil Count 0.08 10^3/uL (0.0-0.7); Absolute Lymphocyte Count 1.09 10^3/uL (1.2-3.4); Absolute Monocyte Count 0.33 10^3/uL (0.1-0.8); Absolute Neutrophil Count 3.97 10^3/uL (1.2-6.7); Basophils % 0.7; Eosinophils % 1.4; HCT 38.4 % (36.0-46.0); HGB 13.2 g/dL (11.2-15.7); Immature Grans % 0.4; Lymphocytes % 19.7; MCH 34.8 pg (27.0-33.0); MCHC 34.4 % (32.0-36.0); MCV 101 fL (80-95); MPV 11.4 fL (8.0-11.0); Neutrophils % 71.8; Platelet Count 203 10^3/uL (130-400); RBC 3.79 10^6/uL (3.93-5.22); RDW 12.9 % (11.7-14.6); RDW-SD 47.7 fL; WBC 5.53 10^3/uL (4.4-10.8)
[2022-09-11 15:43] LABS: ALT 47 U/L (14-59); AST 50 U/L (15-37); Albumin 3.7 g/dL (3.4-5.0); Alkaline Phosphatase 105 U/L (46-116); Anion Gap 2.2 mmol/L (3-11); BUN 6 mg/dL (7-18); Bilirubin, Total 0.6 mg/dL (0.2-1.0); CO2 28.8 mmol/L (21.0-32.0); CREATININE 0.8 mg/dL (0.55-1.02); Calcium 8.7 mg/dL (8.5-10.1); Chloride 105 mmol/L (98-107); Estimated GFR 96.06 (mL/min/1.73m2); Glucose 92 mg/dL (74-106); Potassium 3.7 mmol/L (3.5-5.1); Sodium 136 mmol/L (136-145); TSH 1.38 uIU/mL (0.36-3.74); Total Protein 6.8 g/dL (6.4-8.2)
== END 2022-09-11 13:04 | disposition home or self-care (01) ==
LOC: NCHCN 13:03
PROVIDERS: PCP Nurse Practitioner Family; Visit Provider Nurse Practitioner Family
DX: F41.8 Other specified anxiety disorders (principal); R50.9 Fever, unspecified; R63.4 Abnormal weight loss; M13.0 Polyarthritis, unspecified; K58.9 Irritable bowel syndrome, unspecified
CPT/HCPCS: 80053; 84443; 85025

== ENCOUNTER 2023-01-13 13:12 | Outpatient (REF) | payer MEDICAID, SELFPAY ==
[2023-01-13 17:33] LABS: ALT 97 U/L (14-59); AST 109 U/L (15-37); Alkaline Phosphatase 108 U/L (46-116); Bilirubin, Direct 0.1 mg/dL (0.0-0.2); Bilirubin, Total 0.2 mg/dL (0.2-1.0); Total Protein 7.2 g/dL (6.4-8.2)
== END 2023-01-13 13:13 | disposition home or self-care (01) ==
LOC: NCHCN 13:12
PROVIDERS: PCP Nurse Practitioner Family; Visit Provider Nurse Practitioner Family
DX: R79.89 Other specified abnormal findings of blood chemistry (principal); Z51.81 Encounter for therapeutic drug level monitoring; Z79.899 Other long term (current) drug therapy
CPT/HCPCS: 80076